=== PATIENT | male | born 1950 | race Caucasian/White ===

== ENCOUNTER → 2020-04-12 08:22 | Outpatient (CLI) | payer MEDICARE, OTHER, SELFPAY ==
--- NOTE | 2020-04-12 | DI.US.S_ITS ---
PROCEDURE: US FINE NEEDLE ASPIRATION INDICATIONS: NODULE COMPARISON: Outside Facility, RG, US SOFT TISSUE HEAD OR NECK, 03/21/2020, 13:42. FINDINGS: Fine-needle aspiration of the 3.1 cm thyroid nodule in the inferior right thyroid lobe was attempted. The nodule was below the clavicle and deep. Unable to reach the nodule to obtain tissue. The biopsy was canceled. IMPRESSION: 1. Unsuccessful ultrasound-guided thyroid nodule fine needle aspiration. The lesion is below the clavicle. 2. The lesoin has a ACR TI-RADS scoare 3 points (TR3). A thyroid scintigraphy is suggested for follow-up evaluation. If tissue sampling is required clinically, surgical consultation is recommended. Dictated by: Christian Diaz M.D. on 04/12/2020 at 12:30 Approved by: Christian Diaz M.D. on 04/12/2020 at 12:37
== END ==
PROVIDERS: PCP Student in an Organized Health Care Education/Training Program; Referring Provider Nurse Practitioner Family; Visit Provider Nurse Practitioner Family
DX: E04.1 Nontoxic single thyroid nodule (principal); Z53.09 Procedure and treatment not carried out because of other contraindication
CPT/HCPCS: 10005